=== PATIENT | female | born 1945 | race Caucasian/White ===

== ENCOUNTER 2016-10-15 07:41 | Inpatient (IN) ==
[2016-10-08 09:04] LABS: MANUAL DIFF NEEDED? NO
[2016-10-08 09:05] LABS: URINE MICRO REVIEW NEEDED? NO; URINE SOURCE CLEAN CATCH
[2016-10-08 09:57] LABS: BILIRUBIN URINE NEGATIVE (NEGATIVE); BLOOD URINE NEGATIVE (NEGATIVE); COLOR STRAW; GLUCOSE URINE NEGATIVE (NEGATIVE); LEUKOCYTES URINE NEGATIVE (NEGATIVE); NITRITE URINE NEGATIVE (NEGATIVE); PH URINE 5.5; PROTEIN URINE NEGATIVE (NEGATIVE); SP GRAVITY URINE 1.007; TURBIDITY URINE CLEAR (CLEAR); UROBILINOGEN URINE NORMAL (NORMAL)
[2016-10-08 09:58] LABS: BASO% 0.4 % (0.0-0.8); EOS# 0.03 X1000 (0.0-0.7); EOS% 0.7 % (0.0-10.0); LYMPH# 1.72 X1000 (1.2-3.4); LYMPH% 38.4 % (20.5-51.1); MCH 32.4 PG (27-31); MCHC 32.4 g/dL (33-37); MONO# 0.55 X1000 (0.11-0.59); MONO% 12.3 % (1.7-9.3); MPV 13.6 FL (7.4-10.4); NEUT% 48.2 % (42.2-75.2); PLT 167 X1000 (130-400)
[2016-10-08 10:00] LABS: UR EPITHELIAL CELLS <10 /HPF (<10); URINE BACTERIA NEGATIVE /HPF; URINE RBC <10 /HPF (<10); URINE WBC <10 /HPF (<10)
[2016-10-08 10:09] LABS: INR 0.95; PROTIME 9.9 Seconds (9.2-11.7)
[2016-10-08 10:26] LABS: POTASSIUM 4.1 mmol/L (3.5-5.1)
--- NOTE | 2016-10-08 12:13 | EKG Report ---
Test Performed on : 10/08/2016 12:08:42 PM Test Reason : PAT Blood Pressure : / mmHG Vent. Rate : 063 BPM Atrial Rate : 063 BPM P-R Int : 144 ms QRS Dur : 092 ms QT Int : 426 ms P-R-T Axes : 066 045 038 degrees QTc Int : 435 ms Normal sinus rhythm. Normal ECG When compared with ECG of 28-NOV-2015 19:43, No significant change was found Confirmed by Justin Solorzano MD ([id number]) on 10/08/2016 4:18:39 PM
[2016-10-15] MEDS ORDERED: COLACE ONE (08:05)
[2016-10-15] MEDS ORDERED: KEFZOL 1 GM/D5W 1 GM/50 ML IVPB ONE (08:05)
[2016-10-15] MEDS ORDERED: LYRICA ONE (08:05)
[2016-10-15] MEDS ORDERED: PEPCID ONE (08:05)
[2016-10-15] MEDS ORDERED: LR 1,000 ML ONE ×2 (08:05→13:15)
[2016-10-15] MEDS ORDERED: REGLAN ONE (08:05)
[2016-10-15] MEDS ORDERED: VANCOMYCIN ONE (10:01)
[2016-10-15] MEDS ORDERED: TORADOL ONE (10:01)
[2016-10-15] MEDS ORDERED: CYKLOKAPRON 1,000 MG/NS 1,000 MG/100 ML IVPB ONE ×2 (10:01→10:03)
[2016-10-15] MEDS ORDERED: MARCAINE 0.25% PF/EPI 1:200,000 ONE (10:01)
[2016-10-15] MEDS ORDERED: SODIUM CHLORIDE 0.9% ONE (10:01)
[2016-10-15] MEDS ORDERED: NEOSPORIN G.U. IRRIGANT ONE (10:02)
[2016-10-15] MEDS ORDERED: EXPAREL 1.3% ONE (10:02)
[2016-10-15 11:38] LABS: URINE MICRO REVIEW NEEDED? NO; URINE SOURCE CATH
[2016-10-15 11:41] LABS: BILIRUBIN URINE NEGATIVE (NEGATIVE); BLOOD URINE NEGATIVE (NEGATIVE); COLOR STRAW; GLUCOSE URINE NEGATIVE (NEGATIVE); LEUKOCYTES URINE NEGATIVE (NEGATIVE); NITRITE URINE NEGATIVE (NEGATIVE); PH URINE 6.5; PROTEIN URINE NEGATIVE (NEGATIVE); SP GRAVITY URINE 1.009; TURBIDITY URINE CLEAR (CLEAR); UROBILINOGEN URINE NORMAL (NORMAL)
[2016-10-15 11:43] LABS: UR EPITHELIAL CELLS <10 /HPF (<10); URINE BACTERIA NEGATIVE /HPF; URINE RBC <10 /HPF (<10); URINE WBC <10 /HPF (<10)
[2016-10-15] MEDS ORDERED: PRINIVIL PO SCH (12:00)
[2016-10-15] MEDS ORDERED: DIPRIVAN 1% 500 MG/50 ML BOTTLE ONE (12:22)
[2016-10-15] MEDS ORDERED: FENTANYL ONE (12:24)
[2016-10-15] MEDS ORDERED: NS 1,000 ML ONE (13:02)
[2016-10-15] MEDS ORDERED: ZOFRAN ONE (13:14)
[2016-10-15] MEDS ORDERED: OFIRMEV 1000 MG/ISOTONIC SOLN 1,000 MG/100 ML BOTTLE ONE (13:15)
[2016-10-15] MEDS ORDERED: DECADRON ONE (13:15)
--- NOTE | 2016-10-15 13:15 | Diag Imaging Result Doc PS360 ---
KNEE 1-2 VIEWS-RIGHT - 10/15/2016 INDICATION: right TKA TECHNIQUE: Two views COMPARISON: None FINDINGS: There has been right total knee arthroplasty with patellar resurfacing. Alignment is anatomic. No hardware fracture or loosening. IMPRESSION: No evidence of complication. Electronically signed by Alexey Duran 10/15/2016 1:13 PM
[2016-10-15] MEDS ORDERED: ZOFRAN PO PRN (14:00)
[2016-10-15] MEDS ORDERED: MILK OF MAGNESIA PO PRN (14:00)
--- NOTE | 2016-10-15 14:08 | OPERATIVE NOTE ---
PROCEDURE DATE: 10/15/2016 PREOPERATIVE DIAGNOSIS: Degenerative arthritis right knee. POSTOPERATIVE DIAGNOSIS: Degenerative arthritis right knee. PROCEDURE: Right total knee arthroplasty with DePuy Attune size 5 posterior stabilized femur, a size 4 tibial tray, a 7 mm rotating platform tibial insert, and a 35 mm medialized anatomic patella. SURGEON: Valentin Recinos [employer] OPERATOR: FERNANDA Rayo [employer] COUNTER CLERK: PAYAM Agudelo ANESTHESIA: Spinal IV FLUIDS: 1800 mL lactated Ringer's. ESTIMATED BLOOD LOSS: 30 mL. TOURNIQUET TIME: 80 minutes at 350 mmHg. COMPLICATIONS: None. INDICATION: The patient is a pleasant 70-year-old female, who has chronic history of pain and discomfort of the right knee. Radiographic studies revealed underlying degenerative arthritis. Recommendation to proceed with a right total knee arthroplasty was offered. Risks and benefits of surgery were explained, including the risks of anesthesia, , bleeding, infection, failure to relieve pain, postoperative stiffness, nerve injury, blood clots, and other imponderables. All questions were answered. The patient wished to proceed with surgery. DETAILS OF OPERATION: The patient was taken to the operating room and underwent spinal anesthesia. After adequate anesthesia was obtained, patient was placed supinely on the operating table. Right lower extremity was subsequently prepped and draped in the usual sterile fashion. Esmarch was used to exsanguinate the right lower extremity and the tourniquet was inflated to 350 mmHg. A standard anterior incision was made with the skin knife. Medial and lateral skin envelopes were developed. Standard medial parapatellar arthrotomy was then performed. Patella fat pad was excised. Superior retractors then placed. Approximately 1 cm anterior to the PCL insertion, a starting reamer was passed. Intramedullary guide was then placed and the distal femoral cutting block was pinned in position. Distal femoral cut was then performed in a standard fashion. A sizing block was placed and this measured a size 5. Corresponding pins were placed. Anterior, posterior, and chamfer cuts were then made. Attention was turned to the proximal tibia where the extramedullary guide was used and the proximal tibial cutting block was pinned in position. Had good alignment confirmed. Proximal tibia was then resected. The medial and lateral meniscus this was excised and a curved osteotome was used to remove the posterior osteophytes off the distal femur. A spacer block was then placed and had good soft tissue balancing in both flexion and extension. Attention was then turned the proximal tibia where a size 4 appeared to the correct size. This was pinned in position. This was followed by a central reamer and a fin punch. A box cutting guide was then pinned on the distal femur. A box cut was then performed. A trial femoral component was then placed and 2 lug holes were drilled. Trial tibial insert was then placed and had good soft tissue balancing. The patella was everted and resected in the standard fashion. A 35 appeared to be the correct size. Corresponding holes were drilled. A trial patella component was then placed and had good patellofemoral tracking. The trial components were then removed. Copious irrigation then performed with antibiotic pulsatile lavage while vancomycin was mixed with cement on the back table. Sequential cementing was then performed, first with the tibial tray and excess cement was removed with freer followed by the femoral component and excess cement was removed with a [place]. A trial tibial insert was placed in full extension. Axial loading was maintained while the cement cured. The patella component was cemented in the standard fashion. Patella clamp was placed. While cement was curing, Exparel was placed in deep soft tissue, as well as subcutaneous tissue. After the cement had cured, peripheral cement was smoothed with a small osteotome. The 7 mm rotating platform tibial insert appeared to the correct size. The trial insert was removed. Exparel was placed in the posterior capsule. The wound was copiously irrigated once again with antibiotic pulsatile lavage. The 7 mm rotating platform tibial insert was then placed and had good soft tissue balancing and good patellofemoral tracking. Also 18 Hemovac drain was placed and was not sewn in. Copious irrigation then performed once again with antibiotic pulsatile lavage. Number 1 Vicryl was used to repair the arthrotomy, followed by 2-0 Vicryl to repair the subcutaneous tissue, and skin maria alejandra. Adaptic, sterile 4 x 4, Webril, cryo unit, and Akira wrap was applied to the right lower extremity. The patient tolerates this well with no complications. Transferred to the recovery room in stable condition. cc: Valentin Recinos MD
[2016-10-15] MEDS: MORPHINE IV PRN ×2 (14:26→17:14)
[2016-10-15] MEDS: HYDROCHLOROTHIAZIDE PO SCH (15:27)
[2016-10-15] MEDS: TYLENOL PO SCH ×2 (15:28→20:13)
[2016-10-15] MEDS: NS 1,000 ML IV SCH (15:29)
[2016-10-15] MEDS: KEFZOL 1 GM/D5W 1 GM/50 ML IVPB IV SCH (18:07)
[2016-10-15] MEDS: PERIDEX MT SCH (20:13)
[2016-10-15] MEDS: COLACE PO SCH (20:13)
[2016-10-15] MEDS: OXY IR PO PRN (22:56)
[2016-10-16] MEDS: KEFZOL 1 GM/D5W 1 GM/50 ML IVPB IV SCH (02:15)
[2016-10-16] MEDS: NS 1,000 ML IV SCH (03:00)
[2016-10-16] MEDS: TYLENOL PO SCH ×2 (03:27→09:05)
[2016-10-16] MEDS: OXY IR PO PRN ×2 (05:43→11:15)
[2016-10-16] MEDS ORDERED: XARELTO PO SCH (06:00)
[2016-10-16 06:09] LABS: HEMATOCRIT 29.1 % (37.0-47.0); HEMOGLOBIN 9.2 g/dL (12.0-16.0)
[2016-10-16 06:17] LABS: CALCIUM 7.9 mg/dL (8.8-10.2); POTASSIUM 4.9 mmol/L (3.5-5.1)
--- NOTE | 2016-10-16 07:02 | PROGRESS NOTE ---
DATE: 10/16/2016 SUBJECTIVE: The patient is a pleasant, 70-year-old female, who is one day status post right total knee arthroplasty. She is resting comfortably. OBJECTIVE: On physical exam of the patient's right lower extremity, her dressing is intact. Her calf is soft. She is grossly neurovascularly intact. She does have weak dorsiflexion. Her anterior tib is firing; however, has some weakness. Compartments were soft. Her hemoglobin is 9.2 and hematocrit is 29.1. IMPRESSION: Postop day #1 status post right total knee arthroplasty. PLAN: At this point, we will change her dressing and discontinue her drain and French. The patient will mobilize physical therapy. We will plan on discharging home once she is mobilizing well. The patient will receive home physical therapy. 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 All of her questions were answered. She agrees to treatment plan. cc: Valentin Recinos MD
[2016-10-16] MEDS ORDERED: PRINIVIL PO SCH (09:00)
[2016-10-16] MEDS: COLACE PO SCH (09:03)
[2016-10-16] MEDS: PERIDEX MT SCH (09:03)
[2016-10-16] MEDS: PEPCID PO SCH ×2 (09:04→09:06)
[2016-10-16] MEDS: HYDROCHLOROTHIAZIDE PO SCH (09:05)
[2016-10-16 12:00] VITALS: BP 144/54
== END 2016-10-16 14:42 | disposition home health service (06) ==
LOC: SURHOLD 07:41 → 4N 10:40
PROVIDERS: ADMIT Orthopaedic Surgery Adult Reconstructive Orthopaedic Surgery; ATTEND Orthopaedic Surgery Adult Reconstructive Orthopaedic Surgery